=== PATIENT | female | born 1985 | race African-American/Black ===

== ENCOUNTER 2023-05-04 11:41 | Emergency (ER) | payer OTHER ==
[2023-05-04 11:51] VITALS: TEMP 98.2; BMI 35.2
[2023-05-04] MEDS ORDERED: SODIUM CHLORIDE 0.9% 500 ML INFUS.BAG IV ONE (12:00)
[2023-05-04] MEDS ORDERED: ONDANSETRON 4 MG/2 ML VIAL IVPUSH ONE (12:00)
[2023-05-04] MEDS ORDERED: ACETAMINOPHEN 1000 MG/100 ML BAG IVPB ONE (12:00)
[2023-05-04] MEDS ORDERED: ONDANSETRON 4 MG/2 ML VIAL ONE (12:23)
[2023-05-04] MEDS ORDERED: ACETAMINOPHEN INJECTION 100 ML IVPB ONE (12:25)
[2023-05-04 13:16] LABS: POTASSIUM 3.7 mmol/L (3.5-5.1)
[2023-05-04 13:18] LABS: CALCIUM 8.6 mg/dL (8.5-10.1)
[2023-05-04 13:19] LABS: ALBUMIN 3.3 g/dl (3.4-5.0); BLOOD UREA NITROGEN 9.4 mg/dL (7-18)
[2023-05-04 13:22] LABS: CREATININE 0.9 mg/dL (0.55-1.3)
[2023-05-04 13:23] LABS: BILIRUBIN,TOTAL 0.1 mg/dL (0.2-1); TOT PROT 6.5 g/dl (6.4-8.2)
[2023-05-04 13:25] LABS: BASO % 0.6 % (0-2.0); EOS % 0.5 % (0-4.5); HEMATOCRIT 35.3 % (32.4-45.2); HEMOGLOBIN 11.4 GM/dL (10.7-15.3); LYMPH % 28.2 % (8-40); MCH 28.9 pg (25.7-33.7); MCHC 32.2 g/dl (32.0-36.0); MEAN CELL VOLUME 89.5 fl (80-96); MEAN PLT VOLUME 7.9 fl (7.5-11.1); MONO % 3.7 % (3.8-10.2); PLATELET COUNT 307 10^3/uL (134-434); RBC 3.94 M/mm3 (3.60-5.2); RDW 12.8 % (11.6-15.6)
[2023-05-04 14:38] VITALS: BP 109/61; PULSE 68; RESP 14
== END 2023-05-04 14:46 | disposition home or self-care (01) ==
LOC: JER 11:41
PROC: 3E033NZ Introduction of Analgesics, Hypnotics, Sedatives into Peripheral Vein, Percutaneous Approach (ICD-10-PCS; principal; 2023-05-04)
PROC: 3E033GC Introduction of Other Therapeutic Substance into Peripheral Vein, Percutaneous Approach (ICD-10-PCS; 2023-05-04)
DX: R11.0 Nausea (principal); R19.7 Diarrhea, unspecified
CPT/HCPCS: 36415; 80053; 83690; 85025; 99284-25